=== PATIENT | female | born 2000 | race African-American/Black ===

== ENCOUNTER 2018-01-26 12:48 | Emergency (ER) | payer MEDICAID ==
[~2018-01-26] VITALS: Ht 165.1 cm; Wt 55.3 kg
[2018-01-26 13:10] VITALS: BP 91/56
[2018-01-26 13:38] LABS: Urine Bacteria NONE SEEN /hpf (None Seen); Urine Blood Negative /uL (Negative); Urine Specific Gravity 1.014 (1.001-1.035); Urine WBC 6 /hpf (0 - 5)
== END 2018-01-26 14:36 | disposition home or self-care (01) ==
LOC: ER 12:48
DX: N39.0 Urinary tract infection, site not specified (principal)
CPT/HCPCS: 81001; 81025